=== PATIENT | female | born 1940 | race Caucasian/White ===

== ENCOUNTER → 2016-03-05 | Outpatient (CLI) | payer OTHER ==
[~2016-03-05] MED LIST: ASPI325T39 PO; CALCTAB5 PO; HYDR-5688 PO; MULT-190 PO
[2016-03-05 17:19] LABS: BLOOD UREA NITROGEN 15 mg/dl (7-18); CREATININE 0.95 mg/dl (0.60-1.20)
== END | disposition home or self-care (01) ==
LOC: C.LABBFT 12:58
PROVIDERS: ATTEND Internal Medicine
DX: Z00.00 Encounter for general adult medical examination without abnormal findings (principal); C85.90 Non-Hodgkin lymphoma, unspecified, unspecified site

== ENCOUNTER → 2016-03-11 | Outpatient (CLI) | payer OTHER ==
[~2016-03-11] MED LIST changes: +OPTIRAY 320 IV PRN
--- NOTE | 2016-03-11 12:17 | DIAGNOSTIC IMAGING REPORT ---
ABDOMEN AND PELVIS CT WITH IV AND ORAL CONTRAST CT DOSE: HISTORY: C85.90 Non-Hodgkin lymphoma TECHNIQUE: Multiaxial CT images of the abdomen and pelvis were performed following the use of intravenous and oral contrast. COMPARISON STUDY: Abdomen and pelvis CT 07/05/2015. FINDINGS: Calcified granuloma seen at the base of the left lower lobe. No pneumoperitoneum. No pneumatosis. Endplate compression deformities versus Schmorl's nodes at L2 and L5 remain stable. Small hiatus hernia. A right inguinal lymph node has increased in size. This measures 2.3 x 1.7 cm. This previous measured 2.1 x 1.4 cm. Mild left posterior bladder wall thickening remains unchanged. There is progressive soft tissue thickening at the left obturator internus muscle, ileocecal valve, and retrocrural/paraspinal location from the visualized lower thoracic spine level (T9) through L1. This results in mild anterior displacement of the distal descending thoracic aorta. The soft tissue measures up to 3 cm in thickness at the level of the distal descending thoracic aorta, previously measuring up to 2 cm. There is also extension of the abnormal soft tissue thickening along the bilateral posterior pleural/extrapleural locations within the lower chest. There may be abnormal soft tissue thickening at the gastric cardia. Increase in size in the irregular mesenteric and ileocolic lymph nodes. Dominant ileocolic lymph node measures 4.1 x 2.4 cm, previously measuring 2.8 x 1.5 cm. Colonic diverticulosis. No bowel wall thickening or obstruction. The liver, gallbladder, pancreas, spleen, and adrenal glands are unremarkable. Stable cortical calcification within the left kidney. Multiple left parapelvic renal cysts. No hydronephrosis. The uterus and ovaries are unremarkable. Trace pelvic free fluid. Multiple subcentimeter retroperitoneal lymph nodes are similar to the prior study. IMPRESSION: Progression of the abnormal soft tissue seen within the paraspinal location of the lower chest/upper abdomen, ileocecal valve, left obturator internus muscle, and possibly the gastric cardia as described above. This is consistent with progression of the patient's known lymphoma. There is also progression of the mesenteric/ileocolic and inguinal lymphadenopathy. Electronically signed by: Henrik George M.D. 03/11/2016 12:15 PM Dictated Date/Time: 03/11/2016 12:01 PM
--- NOTE | 2016-03-11 12:22 | DIAGNOSTIC IMAGING REPORT ---
CT OF THE CHEST WITH IV CONTRAST CLINICAL HISTORY: C85.90 Non-Hodgkin lymphoma COMPARISON STUDY: No previous studies for comparison. TECHNIQUE: Following the IV administration of 94 mL of Optiray-320, CT of the thorax was performed from the thoracic inlet to the lung bases. Images are reviewed in the axial, sagittal, and coronal planes. IV contrast was administered without complication. CT DOSE: 993.32 mGycm FINDINGS: Thyroid: Imaged portions of the thyroid gland are normal in appearance. Thoracic aorta: The thoracic aorta is normal in course and caliber, noting standard 3-vessel arch anatomy. No aneurysm or dissection is seen. Pulmonary vasculature: The pulmonary trunk is normal in caliber. There are no central filling defects identified to suggest pulmonary embolus. Note that this examination was not protocoled for the evaluation of pulmonary emboli. HEART: The heart is normal in size and configuration, without pericardial effusion. Lungs and pleural spaces: There is no focal pulmonary consolidation. There is a 3 mm right upper lobe nodule as visualized in image #[id number]. There is right-sided pleural thickening. Mediastinum: There is posterior mediastinal adenopathy beginning at the subcarinal level, and extending into the upper abdomen. The jefferson mass partially encases the aorta. The mass measures 54 mm in transverse diameter. The mass extends into the retrocrural soft tissues. The posterior right-sided pleural thickening is at the same attenuation as the adenopathy and may represent adenopathy extension Georgette: Clear. Axilla: Clear. Upper abdomen: There is a small hiatal hernia. Skeletal structures: There are no lytic or blastic osseous lesions. IMPRESSION: 1. Retroperitoneal and retrocrural lymphadenopathy. The jefferson mass measures 5.4 cm in transverse diameter and extends from the subcarinal region into the upper abdomen 2. 3 mm right upper lobe pulmonary nodule Electronically signed by: Ace Woods M.D. 03/11/2016 12:20 PM Dictated Date/Time: 03/11/2016 12:11 PM
== END | disposition home or self-care (01) ==
LOC: C.CTS 11:21
PROVIDERS: ATTEND Internal Medicine
DX: C85.90 Non-Hodgkin lymphoma, unspecified, unspecified site (principal); R91.1 Solitary pulmonary nodule

== ENCOUNTER 2016-04-10 08:21 | Day surgery (SDC) | payer OTHER ==
--- NOTE | 2016-03-27 08:22 | PAT Medication Instructions ---
Service Date Mar 27, 2016. Current Home Medication List Aspirin (Aspirin Ec), 325 MG PO Q6H PRN for Pain Calcium (Caltrate), 600 MG PO QAM Ocuvite Preservision (Ocuvite Preservision), 1 TAB PO QAM Medication Instructions For Your Scheduled Surgery - Hold the following medications 7 days prior to surgery per surgeon's instructions: Aspirin (Aspirin Ec), 325 MG PO Q6H PRN for Pain - Hold the following medications the morning of surgery: Calcium (Caltrate), 600 MG PO QAM Ocuvite Preservision (Ocuvite Preservision), 1 TAB PO QAM Nothing to eat or drink after midnight If you have any questions please call us at [phone] or [phone] or [phone]
[2016-03-27 09:04] LABS: BASO % 0.1 %; BASO ABS # 0.01 K/uL (0-0.2); COMPLETE YES; EOS % 2.5 %; HEMATOCRIT 41.6 % (37-47); IG% 0.3 %; LYMPH % 14.4 %; LYMPH ABS # 1.06 K/uL (1.2-3.4); MEAN CELL VOLUME 91.8 fL (80-100); MEAN CORPUSCULAR HEMOGLOBIN 31.1 pg (25-34); MEAN CORPUSCULAR HGB CONC 33.9 g/dl (32-36); MEAN PLATELET VOLUME 9.3 fL (7.4-10.4); MONO % 10.5 %; NEUT % 72.2 %; PLATELET COUNT 269 K/uL (130-400); RED BLOOD COUNT 4.53 M/uL (4.2-5.4); WHITE BLOOD COUNT 7.34 K/uL (4.8-10.8)
[2016-03-27 09:24] LABS: CALCIUM 9.5 mg/dl (8.5-10.1); POTASSIUM 4.9 mmol/L (3.5-5.1)
[~2016-04-10] VITALS: Ht 165.1 cm; Wt 81.9 kg
[~2016-04-10 08:21] MED LIST changes: +ATROPINE SULFATE 0.1 MG/ML 5ML SYR IV PRN; +CEFAZOLIN 2000 MG/60 ML D5W IV SCH; +EpHEDrine SULFATE INJ 50 MG/ML AMP IV PRN; +FENTANYL CITRATE INJ 50 MCG/1 ML 2 ML VIAL IV PRN; -HYDR-5688 PO; +LACTATED RINGER'S 1000ML 1,000 ML IV SCH; +ONDANSETRON INJ 2 MG/ML 2 ML VIAL IV PRN; -OPTIRAY 320 IV PRN
[2016-04-10 08:45] VITALS: BP 146/83; PULSE 107; TEMP 36.9; O2SAT 97; Ht 165.1 cm; Wt 81.9 kg
--- NOTE | 2016-04-10 11:11 | History & Physical Bridge Note ---
H&P Re-Evaluation Bridge Note: I have examined the patient, reviewed the History & Physical and in the interval since the performance of the History & Physical I have noted the following changes of clinical significance: No changes noted
[2016-04-10] MEDS ORDERED: HYDR-5688 PO (11:17)
--- NOTE | 2016-04-10 11:21 | Discharge Instructions ---
Discharge Instructions Admission Reason for Admission: Lymph Node Enlargment, Hx Non Hodgkins Lymphoma Discharge Discharge Diagnosis / Problem: Lymph Node Enlargement, Hx Non Hodgkins Lymphoma Discharge Goals Goal(s): Decrease discomfort, Improve function Activity Recommendations Activity Limitations: as noted below Lifting Limitations: no more than 5 pounds Exercise/Sports Limitations: until after follow-up appointment May Resume Sexual Activity: after follow-up appointment Shower/Bathe: tomorrow . Instructions / Follow-Up Instructions / Follow-Up Please follow-up with Dr. Madsen in the office in 1-2 weeks. Current Hospital Diet Patient's current hospital diet: Discharge Diet Recommended Diet: Regular Diet Pending Studies Studies pending at discharge: yes List of pending studies: Pathology report Medical Emergencies . Who to Call and When: Medical Emergencies: If at any time you feel your situation is an emergency, please call 911 immediately. . Non-Emergent Contact Non-Emergency issues call your: Primary Care Provider, Surgeon Call Non-Emergent contact if: temperature is above 101, your pain is not controlled, wound has increased drainage, wound has increased redness . "Provider Documentation" section prepared by Susanna Vaz. VTE Core Measure Inpt VTE Proph given/why not?: Unfractionated heparin SQ, SCD's
[2016-04-10] MEDS ORDERED: FENTANYL CITRATE INJ 50 MCG/1 ML 2 ML VIAL ONE (11:47)
[2016-04-10] MEDS ORDERED: MIDAZOLAM HCL 1 MG/ML 2ML VIAL ONE (11:47)
--- NOTE | 2016-04-10 11:58 | DIAGNOSTIC IMAGING REPORT ---
CT GUIDED WIRE LOCALIZATION OF RIGHT INGUINAL LYMPH NODE CT DOSE: 1007.07 mGycm CLINICAL HISTORY: Right inguinal area needle placement for OR surgical case 04/10 COMPARISON STUDY: CT of the abdomen and pelvis March 11, 2016. FINDINGS: The procedure, risks and benefits were discussed with the patient and informed consent was obtained. The procedure was performed by Dr. Chavez following a timeout. Skin of the right groin was prepped and draped in sterile fashion and local anesthesia was achieved with 1% lidocaine. Unenhanced CT images through the pelvis demonstrated the 2.4 cm right inguinal lymph node. This was targeted for localization. A 10 cm Crespo 2 needle was directed into this lymph node. The wire is located within the lateral aspect of the lymph node. The needle was removed. The wire was left in place. The patient tolerated the procedure well and no immediate complications were evident. IMPRESSION: CT-guided wire localization of 2.4 cm right inguinal lymph node. Electronically signed by: Octaviano Chavez M.D. 04/10/2016 11:57 AM Dictated Date/Time: 04/10/2016 11:55 AM
[2016-04-10] MEDS ORDERED: BUPIVACAINE/EPINEPHRINE 0.5% MPF 1:200,000 30 ML VIAL ONE (12:14)
[2016-04-10] MEDS ORDERED: SUCCINYLCHOLINE 100MG/5ML SYR IV ONE (12:35)
[2016-04-10] MEDS ORDERED: ONDANSETRON INJ 2 MG/ML 2 ML VIAL ONE (12:35)
[2016-04-10] MEDS ORDERED: PROPOFOL IV EMULSION 10 MG/ML 20 ML VIAL IV ONE (12:35)
[2016-04-10] MEDS ORDERED: DEXAMETHASONE SOD INJ 4 MG/ML VIAL ONE (12:35)
[2016-04-10] MEDS ORDERED: PHENYLEPHRINE HCL INJ 10 MG/ML VIAL ONE (12:38)
[2016-04-10] MEDS ORDERED: EpHEDrine SULFATE 50MG/5ML SYR ONE (12:38)
[2016-04-10] MEDS ORDERED: SODIUM CHLORIDE 0.9% 1000ML 1,000 ML IV SCH (12:52)
--- NOTE | 2016-04-10 12:54 | [facility] Operative Report ---
Operative Report Operative Date Apr 10, 2016. Pre-Operative Diagnosis Lymph Node Enlargement Right Groin Post-Operative Diagnosis same Procedure(s) Performed right groin excisional biopsy enlarged lymph node after needle LOC Surgeon Dr. Madsen Cracking And Fanning Machine Operator Surgeon(s) KATELYN Canales Estimated Blood Loss 10 ml Findings enlarged right groin lymph node Specimens A. Right Inguinal Lymph Node (Fresh)--sent to lab at 1240 Anesthesia LMA Complication(s) None Disposition Recovery Room / PACU I attest to the content of the Intraoperative Record and any orders documented therein. Any exceptions are noted below.
[2016-04-10] MEDS ORDERED: KETOROLAC TROMETHAMINE 30 MG/ML VIAL IV. PRN (13:00)
[2016-04-10] MEDS ORDERED: ONDANSETRON INJ 2 MG/ML 2 ML VIAL IV PRN ×2 (13:00→13:15)
[2016-04-10] MEDS ORDERED: HYDROCODONE/ACETAMOPHEN 5/325MG TAB PO PRN ×2 (13:00)
[2016-04-10] MEDS ORDERED: IBUPROFEN 600 MG TAB PO PRN (13:00)
[2016-04-10] MEDS ORDERED: FENTANYL CITRATE INJ 50 MCG/1 ML 2 ML VIAL IV PRN (13:15)
[2016-04-10] MEDS ORDERED: ATROPINE SULFATE 0.1 MG/ML 5ML SYR IV PRN (13:15)
[2016-04-10] MEDS ORDERED: EpHEDrine SULFATE INJ 50 MG/ML AMP IV PRN (13:15)
--- NOTE | 2016-04-10 13:40 | Anesthesiology Progress Note ---
Anesthesia Post Op Note Date & Time Apr 10, 2016 at 13:36 Vital Signs Pain Intensity: 0 Vital Signs Past 12 Hours Date Time Temp Pulse Resp B/P Pulse Ox O2 Delivery O2 Flow Rate FiO2 04/10/16 13:20 99 12 134/75 100 Mask 10 04/10/16 13:10 104 16 137/78 100 Mask 10 04/10/16 13:00 36.2 104 15 130/73 100 Mask 10 04/10/16 08:45 36.9 107 18 146/83 97 Room Air Notes Mental Status: alert / awake / arousable, participated in evaluation Pt Amnestic to Procedure: Yes Nausea / Vomiting: adequately controlled Pain: adequately controlled Airway Patency, RR, SpO2: stable & adequate BP & HR: stable & adequate Hydration State: stable & adequate Anesthetic Complications: no major complications apparent Initial ion exchange operator had difficulty seating LMA due to edentulous patient and lax mandible. After adequate placement by anesthesiologist, patient was found to be in laryngospasm due to inability to move air with normal level of positive pressure. Succinylcholine 60mg given to break spasm was adequate to facilitate air movement through lungs and so LMA was secured and spontaneous ventilation with pressure support was maintained throughout case. At no point in the LMA placement did oxygen saturations drop below 80%.
[2016-04-10 13:45] VITALS: BP 126/68; PULSE 98; TEMP 36.3; O2SAT 95
--- NOTE | 2016-04-10 14:08 | OPERATIVE REPORT ---
DATE OF OPERATION: 04/10/2016 PREOPERATIVE DIAGNOSIS: Enlarge right groin lymph node. POSTOPERATIVE DIAGNOSIS: Same. PROCEDURE: Excision right groin lymph node after needle localization by radiology. SURGEON: Jaiden Madsen DO DIRECTOR WEB: Susanna Vaz PA-C. ESTIMATED BLOOD LOSS: Approximately 10 mL. ANESTHESIA: General laryngeal mask airway. DESCRIPTION OF PROCEDURE: The patient prior to the OR was taken to radiology where they performed an ultrasound guided needle localization of the right groin enlarge lymph node. She was then brought to the operating suite where she was put under general anesthetic with laryngeal mask airway. The right groin area including the guidewire were sterilely prepped and draped in usual fashion. We began by making a horizontal incision just medial to the insertion site of the guidewire. We carried this down through the soft tissue using electrocautery with traction countertraction. We continue to follow the guidewire deep into the right groin area. The node was encountered, was firm and palpable. We continued to use small amounts of electrocautery as well as blunt dissection where possible with a lot of traction countertraction. We were able to tediously continue to remove in this fashion. Eventually, we were able to get the entire node out in one large specimen. It was sent fresh to pathology as instructed us by the lab. There was no real pedicle and no bleeding, etc. We thoroughly irrigated the wound. There was a smaller node just deep to it and we removed it as well and sent it with the specimen. No other palpable abnormalities were identified. We thoroughly irrigated the wound and closed in multiple layers using 0 Vicryl for deep layers, 3-0 Vicryl for mid layers and 4-0 Monocryl for skin. Marcaine was injected around the area for postoperative analgesia and skin glue used as dressing. The patient was awakened, extubated, and transferred to recovery in stable condition. I attest to the content of the Intraoperative Record and any orders documented therein. Any exceptions are noted below. BEN
[2016-04-10 14:45] VITALS: BP 131/72; PULSE 98; TEMP 36.3; O2SAT 95
[2016-06-09] MEDS ORDERED: HYDR-5688 PO (09:02)
== END 2016-04-10 15:10 | disposition home or self-care (01) ==
LOC: C.ACU 08:21
PROVIDERS: ATTEND Surgery
DX: C82.35 Follicular lymphoma grade IIIa, lymph nodes of inguinal region and lower limb (principal); C85.90 Non-Hodgkin lymphoma, unspecified, unspecified site; M51.36 Other intervertebral disc degeneration, lumbar region; E78.5 Hyperlipidemia, unspecified; Z98.890 Other specified postprocedural states

== ENCOUNTER → 2016-05-07 | Outpatient (CLI) | payer OTHER ==
[~2016-05-07] MED LIST changes: -ATROPINE SULFATE 0.1 MG/ML 5ML SYR IV PRN; -CEFAZOLIN 2000 MG/60 ML D5W IV SCH; -EpHEDrine SULFATE INJ 50 MG/ML AMP IV PRN; -FENTANYL CITRATE INJ 50 MCG/1 ML 2 ML VIAL IV PRN; +HYDR-5688 PO; -LACTATED RINGER'S 1000ML 1,000 ML IV SCH; -ONDANSETRON INJ 2 MG/ML 2 ML VIAL IV PRN
--- NOTE | 2016-05-07 12:29 | DIAGNOSTIC IMAGING REPORT ---
PET/CT HISTORY: LYMPHOMA TECHNIQUE: PET/CT was performed from the base of the skull through the pelvis following the intravenous administration of 15.66 mCi of F18-FDG. Non-contrast CT imaging was performed over the same range without breath-hold for attenuation correction of PET images and anatomic correlation, but not for primary interpretation as it is not of standard diagnostic quality. CT DOSE: COMPARISON: Chest abdomen and pelvis CT 03/11/2016. FINDINGS: HEAD AND NECK: There is a 9 mm FDG avid left preauricular lymph node. Intense FDG uptake associated with the masslike enlargement of the left palatine tonsil which measures up to 2.3 cm. There is a smaller focus of intense FDG uptake involving the right palatine tonsil which measures 1 cm. FDG avid soft tissue mass superficial to the left sternocleidomastoid muscle which measures 1.4 cm. CHEST: FDG avid left paraspinal mass originating at the T7 level and extending inferiorly to the retrocrural location at approximately the L1 level. This also extends into the right paraspinal location at the T11-T12 level. This partially encases the descending thoracic aorta and upper abdominal aorta. This measures a maximal thickness of 3.1 cm. On image 84 there is a 1 cm FDG avid right retrocrural nodule which could represent a bronchial lymph node or pulmonary nodule. There is a single subcentimeter left axillary FDG avid lymph node. The stomach is mild FDG uptake. There are few subcentimeter FDG avid right internal mammary lymph nodes. ABDOMEN/PELVIS: There are few FDG avid retroperitoneal and central mesenteric lymph nodes. Dominant central mesenteric lymph node measures 1.8 cm on image 161. Intensely FDG avid ileocolic mass/lymph node which measures 4.4 x 2.5 cm. There is also an FDG avid mass at the ileocecal valve which measures approximately 4 cm. Mild FDG uptake associated with a few inguinal lymph nodes. There are few FDG avid bilateral iliac lymph nodes. There is a 12 mm FDG avid focus within the anterior segment of the right hepatic lobe on image 117. However, there is no corresponding abnormality on the noncontrast CT images. Large left pelvic sidewall mass extending into the obturator internus and groin muscles is again noted. This demonstrates intense FDG uptake. MUSCULOSKELETAL: Multiple scattered intense FDG avid foci seen throughout the majority of the visualized osseous structures. This is most pronounced within the spine, sacrum, and proximal left femur. This corresponds to subtle areas of sclerosis consistent with metastatic disease. IMPRESSION: Extensive FDG avid disease identified within the neck, chest, abdomen, pelvis, and visualized osseous structures as described above. Electronically signed by: Henrik George M.D. 05/07/2016 12:28 PM Dictated Date/Time: 05/07/2016 12:01 PM
== END | disposition home or self-care (01) ==
LOC: C.PET 09:42
PROVIDERS: ATTEND Internal Medicine Hematology & Oncology
DX: C82.25 Follicular lymphoma grade III, unspecified, lymph nodes of inguinal region and lower limb (principal)

== ENCOUNTER → 2016-06-03 | Outpatient (CLI) | payer OTHER ==
--- NOTE | 2016-06-03 16:31 | ECHOCARDIOGRAM REPORT ---
*NOTICE TO RECEIVING REPUBLICAN AGENCY This information is strictly Confidential and protected under [place] law. [place] law prohibits you from making any further disclosure of this information unless further disclosure is expressly permitted by the written consent of the person to whom it pertains or is authorized by law. A general authorization for the release of medical or other information is not sufficient for this purpose. Hospital accepts no responsibility if the information is made available to any other person, INCLUDING THE PATIENT. Interpretation Summary * Name: FESTUS AGUILERA Study Date: 06/03/2016 01:50 PM BP: 140/59 mmHg * Patient Location: [facility] HR: 93 * : 1940 (M/d/yyyy) Gender: Female Height: 5 in * Age: 76 yrs Ethnicity: CA Weight: 179 lb * Ordering Physician: Sarthak Momin * Referring Physician: Sarthak Momin D.O. * Performed By: Amber Allen RDCS * * Reason For Study: Follicular non-Hodgkin's lymphoma * BSA: 0.29 m2 * -- Conclusions -- * Left ventricular systolic function is normal. * Grade I diastolic dysfunction, (abnormal relaxation pattern). * Right ventricular systolic pressure is normal. Procedure Details * A complete two-dimensional transthoracic echocardiogram was performed (2D, M-mode, Doppler and color flow Doppler). Left Ventricle * The left ventricle is normal in size. * There is normal left ventricular wall thickness. * Ejection Fraction = 60-65%. * Left ventricular systolic function is normal. * Grade I diastolic dysfunction, (abnormal relaxation pattern). Right Ventricle * The right ventricle is normal in size and function. Atria * The left atrial size is normal. * Right atrial size is normal. Mitral Valve * The mitral valve anatomy is normal. * There is no mitral regurgitation noted. Tricuspid Valve * The tricuspid valve is not well visualized, but is grossly normal. * There is mild tricuspid regurgitation. * Right ventricular systolic pressure is normal. Aortic Valve * The aortic valve is normal in structure and function. * No hemodynamically significant valvular aortic stenosis. * There is no significant aortic regurgitation. Great Vessels * The aortic root and proximal ascending aorta are normal sized. Pericardium/Pleural * There is no pericardial effusion. MMode 2D Measurements and Calculations IVSd 0.93 cm LVIDd 3.8 cm LVIDs 2.6 cm LVPWd 0.96 cm IVS/LVPW 0.96 FS 33.3 % EDV(Teich) 63.1 ml ESV(Teich) 23.6 ml EF(Teich) 62.6 % EDV(cubed) 56.1 ml ESV(cubed) 16.7 ml EF(cubed) 70.3 % LV mass(C)d 109.4 grams LV mass(C)dI 372.4 grams/m\S\2 SV(Teich) 39.5 ml SI(Teich) 134.4 ml/m\S\2 SV(cubed) 39.4 ml SI(cubed) 134.2 ml/m\S\2 Ao root diam 2.6 cm Ao root area 5.2 cm\S\2 ACS 1.5 cm LA dimension 2.7 cm asc Aorta Diam 2.2 cm LA/Ao 1.1 LVAd ap4 20.6 cm\S\2 LVLd ap4 6.6 cm EDV(MOD-sp4) 51.5 ml EDV(sp4-el) 54.6 ml LVAs ap4 11.2 cm\S\2 LVLs ap4 5.5 cm ESV(MOD-sp4) 19.3 ml ESV(sp4-el) 19.1 ml EF(MOD-sp4) 62.5 % EF(sp4-el) 65.0 % LVAd ap2 18.7 cm\S\2 LVLd ap2 6.4 cm EDV(MOD-sp2) 44.4 ml EDV(sp2-el) 46.2 ml LVAs ap2 10.4 cm\S\2 LVLs ap2 5.2 cm ESV(MOD-sp2) 17.1 ml ESV(sp2-el) 17.6 ml EF(MOD-sp2) 61.6 % EF(sp2-el) 61.9 % LVLd %diff -2.47 % EDV(MOD-bp) 49.4 ml LVLs %diff -5.68 % ESV(MOD-bp) 18.6 ml EF(MOD-bp) 62.3 % SV(MOD-sp4) 32.1 ml SI(MOD-sp4) 109.4 ml/m\S\2 SV(MOD-sp2) 27.3 ml SI(MOD-sp2) 93.0 ml/m\S\2 SV(MOD-bp) 30.8 ml SI(MOD-bp) 104.8 ml/m\S\2 SV(sp4-el) 35.5 ml SI(sp4-el) 120.8 ml/m\S\2 SV(sp2-el) 28.6 ml SI(sp2-el) 97.3 ml/m\S\2 Doppler Measurements and Calculations MV E max justine 83.0 cm/sec MV A max justine 113.8 cm/sec MV E/A 0.73 MV dec time 0.31 sec Ao V2 max 112.4 cm/sec Ao max PG 5.0 mmHg Ao max PG (full) 0.53 mmHg LV V1 max PG 4.5 mmHg LV V1 max 106.3 cm/sec PA V2 max 103.6 cm/sec PA max PG 4.3 mmHg PA acc slope 374.1 cm/sec\S\2 PA acc time 0.15 sec TR max justine 221.4 cm/sec PA pr(Accel) 10.3 mmHg
== END | disposition home or self-care (01) ==
LOC: C.CPL 13:35
PROVIDERS: ATTEND Internal Medicine Hematology & Oncology
DX: Z01.810 Encounter for preprocedural cardiovascular examination (principal); C82.25 Follicular lymphoma grade III, unspecified, lymph nodes of inguinal region and lower limb; I51.89 Other ill-defined heart diseases

== ENCOUNTER → 2016-06-09 | Day surgery (SDC) | payer OTHER ==
[2016-06-05 09:38] VITALS: BMI 35.0
[~2016-06-09] VITALS: Ht 152.4 cm; Wt 81.5 kg
[~2016-06-09] MED LIST changes: +ATROPINE SULFATE 0.1 MG/ML 5ML SYR IV PRN; +BUPIVACAINE/EPINEPHRINE 0.5% MPF 1:200,000 30 ML VIAL ONE; +CEFAZOLIN 2000 MG/60 ML D5W IV SCH; +EpHEDrine SULFATE INJ 50 MG/ML AMP IV PRN; +FENTANYL CITRATE INJ 50 MCG/1 ML 2 ML VIAL IV PRN; +FENTANYL CITRATE INJ 50 MCG/1 ML 2 ML VIAL ONE; +HEPARIN SOD (PORCINE) 1000 UNIT/ML 10 ML VIAL ONE; +HEPARIN SOD 5000 UNIT/0.5 ML CARP SQ SCH; +LACTATED RINGER'S 1000ML 1,000 ML IV SCH; +LIDOCAINE HCL 2% 2 ML VIAL (20MG/ML) ONE; +MIDAZOLAM HCL 1 MG/ML 2ML VIAL ONE; +MoRPHine SULFATE 2 MG/ML CARP IV PRN; +ONDANSETRON INJ 2 MG/ML 2 ML VIAL IV PRN; +PROPOFOL IV EMULSION 10 MG/ML 20 ML VIAL IV ONE
[2016-06-09 07:07] VITALS: BP 151/74; PULSE 98; TEMP 37.2; O2SAT 95; Ht 152.4 cm; Wt 81.5 kg
--- NOTE | 2016-06-09 09:03 | Discharge Instructions ---
Discharge Instructions Date of Service Jun 09, 2016. Visit Reason for Visit: Non-Hodgkins Lymphoma Discharge Discharge Diagnosis / Problem: A-port Discharge Goals Goal(s): Improve disease control Activity Recommendations Activity Limitations: as noted below Shower/Bathe: no limitations Driving or Machine Use: resume 1 day after discharge (if not taking [place]) Anesthesia . Post Anesthesia Instructions: If you have had General Anesthesia or IV Sedation: * Do not drive today. * Resume driving when surgeon permits. * Do not make important decisions or sign legal documents today. * Call surgeon for: 1. Temperature elevations greater than 101 degrees F. 2. Uncontrollable pain. 3. Excessive bleeding. 4. Persistent nausea and vomiting. 5. Medication intolerance (nausea, vomiting or rash). * For nausea and vomiting use only clear liquids such as: tea, soda, bouillon until nausea subsides, then gradually increase diet as tolerated. * If you have any concerns or questions, call your surgeon's office. If physician is unavailable and it is an emergency, call 911 or go to the nearest emergency room. . Diet Recommendations Recommended Home Diet: no limitations Pending Studies Studies pending at discharge: no Medical Emergencies . Who to Call and When: Medical Emergencies: If at any time you feel your situation is an emergency, please call 911 immediately. . Non-Emergent Contact Non-Emergency issues call your: Surgeon Call Non-Emergent contact if: you have a fever, temperature is above 101.5, wound has increased redness . . "Provider Documentation" section prepared by Mayur Cotton.
--- NOTE | 2016-06-09 09:42 | [facility] Operative Report ---
Operative Report Operative Date Jun 09, 2016. Pre-Operative Diagnosis Non-Hodgkin Lymphoma Post-Operative Diagnosis same Procedure(s) Performed left subclavian mediport insertion under fluoro Surgeon Dr. Jaiden Madsen Welding Machine Operator Electro Gas Surgeon(s) Susanna Vaz PA-C Estimated Blood Loss 5ml Findings normal anatomy Specimens none Anesthesia MAC Complication(s) None Disposition Recovery Room / PACU I attest to the content of the Intraoperative Record and any orders documented therein. Any exceptions are noted below.
--- NOTE | 2016-06-09 10:05 | DIAGNOSTIC IMAGING REPORT ---
CHEST ONE VIEW PORTABLE HISTORY: port placement COMPARISON: Head CT 05/07/2016. FINDINGS: The heart is mildly enlarged. Left subclavian Port-A-Cath terminates in the expected location of the distal SVC. No pneumothorax. No pleural effusions. Diffuse interstitial vascular thickening. This suggests mild pulmonary edema. Patchy densities at the base of the left lower lobe. IMPRESSION: 1. The left subclavian Port-A-Cath terminates in the SVC. No pneumothorax. 2. Diffuse interstitial and vascular thickening consistent with mild pulmonary edema. 3. Patchy density at the left lung base may represent atelectasis or pneumonia. Electronically signed by: Henrik George M.D. 06/09/2016 10:03 AM Dictated Date/Time: 06/09/2016 10:01 AM
--- NOTE | 2016-06-09 10:17 | Anesthesiology Progress Note ---
Anesthesia Post Op Note Date & Time Jun 09, 2016 at 10:16 Vital Signs Pain Intensity: 0 Vital Signs Past 12 Hours Date Time Temp Pulse Resp B/P Pulse Ox O2 Delivery O2 Flow Rate FiO2 06/09/16 10:13 36.5 88 18 125/72 94 Nasal Cannula 2 06/09/16 09:55 87 18 131/78 99 Nasal Cannula 2 06/09/16 09:49 36.1 89 18 126/68 99 Mask 10 06/09/16 07:07 37.2 98 16 151/74 95 Room Air Notes Mental Status: alert / awake / arousable, participated in evaluation Pt Amnestic to Procedure: Yes Nausea / Vomiting: adequately controlled Pain: adequately controlled Airway Patency, RR, SpO2: stable & adequate BP & HR: stable & adequate Hydration State: stable & adequate Anesthetic Complications: no major complications apparent
[2016-06-09 10:25] VITALS: BP 147/74; PULSE 92; TEMP 36.7; O2SAT 95
[2016-06-09 10:55] VITALS: BP 155/72; PULSE 89; TEMP 36.7; O2SAT 96
--- NOTE | 2016-06-09 11:15 | OPERATIVE REPORT ---
DATE OF OPERATION: 06/09/2016 PREOPERATIVE DIAGNOSIS: Lymphoma with need for chemotherapy. POSTOPERATIVE DIAGNOSIS: Same. PROCEDURE: Left subclavian MediPort insertion under fluoroscopy. SURGEON: Dr. Jaiden Madsen. TEAM FACILITATOR: Susanna Vaz PA-C ESTIMATED BLOOD LOSS: Approximately 5 mL. COMPLICATIONS: No immediate. ANESTHESIA: MAC with local. DESCRIPTION OF PROCEDURE: After informed consent was obtained, the patient was taken the operating suite and placed in the supine position. Rolled towel was placed between her shoulder blades. The left arm was tucked. IV sedation was administered by anesthesia and titrated to effect. The left upper chest wall was sterilely prepped and draped in the usual fashion. Local was infiltrated around the area of incision as well as up to the periosteum of the left clavicle. An incision was made and carried down through the soft tissue using electrocautery. Blunt finger dissection was used to create a pocket that housed the port itself. We then accessed the left subclavian vein with an 18-gauge needle with a single stick. We advanced the guidewire. Initially under fluoroscopy, the wire wanted to go up into the jugular vein. I was able to withdraw it and gently inserted it again under fluoroscopy and I was able to access the superior vena cava. Once this was done, we then withdrew the needle itself and advanced a vascular dilator with a peelaway sheath over the guidewire again under fluoroscopic guidance. A MediPort was connected to the catheter and flushed with heparin solution, cut to appropriate length by sizing it again under fluoroscopy. We then placed the port into the housing pocket. We withdrew the guidewire as well as a vascular dilator and advanced the catheter through the peelaway sheath. The peelaway sheath was then peeled away leaving the catheter in place. Fluoroscopy verified the positioning in the superior vena cava. We then secured the port itself to the pectoralis muscle using 0 Ethibond and using 3-point fixation. We did access the port and flushed it with heparin solution, withdrew dark venous blood and then reflushed it at a final time. The wound was then irrigated and closed with 3-0 Monocryl for deep layers and 3-0 Monocryl for the skin. Sterile dressing was applied. The patient was awakened and transferred to recovery in stable condition. Postoperative portable chest x-ray is currently pending to verify the catheter position and to rule out pneumothorax. I attest to the content of the Intraoperative Record and any orders documented therein. Any exceptio ns are noted below.
== END | disposition home or self-care (01) ==
LOC: C.ACU 06:36
PROVIDERS: ATTEND Surgery
DX: C85.90 Non-Hodgkin lymphoma, unspecified, unspecified site (principal); E78.5 Hyperlipidemia, unspecified; E66.9 Obesity, unspecified; Z68.35 Body mass index [BMI] 35.0-35.9, adult; Z98.41 Cataract extraction status, right eye; Z98.42 Cataract extraction status, left eye; Z98.890 Other specified postprocedural states; Z81.8 Family history of other mental and behavioral disorders; Z83.511 Family history of glaucoma

== ENCOUNTER → 2016-10-22 | Outpatient (CLI) | payer OTHER ==
[~2016-10-22] MED LIST changes: -ATROPINE SULFATE 0.1 MG/ML 5ML SYR IV PRN; -BUPIVACAINE/EPINEPHRINE 0.5% MPF 1:200,000 30 ML VIAL ONE; -CEFAZOLIN 2000 MG/60 ML D5W IV SCH; -EpHEDrine SULFATE INJ 50 MG/ML AMP IV PRN; -FENTANYL CITRATE INJ 50 MCG/1 ML 2 ML VIAL IV PRN; -FENTANYL CITRATE INJ 50 MCG/1 ML 2 ML VIAL ONE; -HEPARIN SOD (PORCINE) 1000 UNIT/ML 10 ML VIAL ONE; -HEPARIN SOD 5000 UNIT/0.5 ML CARP SQ SCH; -LACTATED RINGER'S 1000ML 1,000 ML IV SCH; -LIDOCAINE HCL 2% 2 ML VIAL (20MG/ML) ONE; -MIDAZOLAM HCL 1 MG/ML 2ML VIAL ONE; -MoRPHine SULFATE 2 MG/ML CARP IV PRN; -ONDANSETRON INJ 2 MG/ML 2 ML VIAL IV PRN; -PROPOFOL IV EMULSION 10 MG/ML 20 ML VIAL IV ONE
--- NOTE | 2016-10-22 12:12 | DIAGNOSTIC IMAGING REPORT ---
PET/CT CLINICAL HISTORY: Lymphoma. TECHNIQUE: A PET/CT was performed from the skull base through the upper thighs following intravenous injection of 15.90 mCi of F 18 FDG IV. The injection was performed at 10:13 AM on October 22, 2016 and imaging began at 10:58 AM on October 22, 2016. Unenhanced CT was performed for attenuation correction purposes and anatomic localization. COMPARISON STUDY: PET/CT May 07, 2016. FINDINGS: Head and neck: The FDG avid left palatine tonsil mass has markedly decreased in size and FDG uptake since exam of May 07, 2016. Minimal residual FDG uptake is is noted within SUV max of 3. It previously measured 8.3. Uptake within the right palatine tonsil has resolved. The previously described left preauricular nodule and the FDG avid lesion anterior to the left sternocleidomastoid muscle has resolved. No enlarged cervical lymph nodes are present on this exam Chest: The previously described FDG avid paraspinal/retrocrural mass has markedly decreased in size and FDG avidity since exam of May 07, 2016. There is mild residual ill-defined soft tissue by CT. Minimal residual FDG uptake is noted within SUV max of 3.2. It previously measured 7. No axillary lymphadenopathy is present on this examination. Heart is mildly enlarged. There is no pericardial effusion. Small hiatal hernia is present. 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 Residual lesion now measures 2.2 x 1.1 cm. It previously measured 4.4 x 2.5 cm. There is no significant FDG uptake within the residual ill-defined soft tissue. Uptake at the level of the ileocecal valve has nearly completely resolved. There is mild residual FDG uptake with an SUV max of 3.3. It previously measured 8.5. The large left pelvic sidewall FDG avid mass has markedly decreased in size with only residual slight asymmetry by CT. There is minimal residual FDG uptake within SUV max of 2.8. There is sigmoid diverticulosis without evidence for acute diverticulitis. Musculoskeletal: Uptake within innumerable skeletal lesions has nearly completely resolved since exam May 07, 2016. At most, there is mild multifocal uptake within this lesions within SUV max for approximately 1.9. IMPRESSION: Findings consistent with a significant treatment response. Near complete resolution of FDG uptake since prior PET/CT of May 07, 2016. Mild residual FDG uptake at multiple sites, as described above with minimal residual ill-defined soft tissue by CT. Electronically signed by: Octaviano Chavez M.D. 10/22/2016 12:11 PM Dictated Date/Time: 10/22/2016 11:52 AM
== END | disposition home or self-care (01) ==
LOC: C.PET 09:47
PROVIDERS: ATTEND Internal Medicine Hematology & Oncology
DX: C82.25 Follicular lymphoma grade III, unspecified, lymph nodes of inguinal region and lower limb (principal)

== ENCOUNTER → 2017-03-20 | Outpatient (CLI) | payer OTHER ==
[~2017-03-20] MED LIST changes: -HYDR-5688 PO
[2017-03-20 12:35] LABS: BASO % 0.4 %; BASO ABS # 0.02 K/uL (0-0.2); EOS % 2.6 %; EOS ABS # 0.13 K/uL (0-0.5); HEMATOCRIT 37.7 % (37-47); HEMOGLOBIN 12.8 g/dL (12.0-16.0); IG# 0.01 K/uL (0.00-0.02); LYMPH % 14.1 %; LYMPH ABS # 0.72 K/uL (1.2-3.4); MEAN CELL VOLUME 94.3 fL (80-100); MEAN PLATELET VOLUME 9.7 fL (7.4-10.4); MONO % 11.2 %; MONO ABS # 0.57 K/uL (0.11-0.59); NEUT % 71.5 %; NEUT ABS # 3.64 K/uL (1.4-6.5); PLATELET COUNT 223 K/uL (130-400); RED CELL DISTRIBUTION WIDTH CV 14.5 % (11.5-14.5); RED CELL DISTRIBUTION WIDTH SD 49.8 fL (36.4-46.3); WHITE BLOOD COUNT 5.09 K/uL (4.8-10.8)
[2017-03-20 12:48] LABS: ALBUMIN 3.5 gm/dl (3.4-5.0); ALT/SGPT 25 U/L (12-78); BLOOD UREA NITROGEN 21 mg/dl (7-18); CALCIUM 9.9 mg/dl (8.5-10.1); CARBON DIOXIDE 28 mmol/L (21-32); CHOLESTEROL 219 mg/dl (0-200); CREATININE 0.89 mg/dl (0.60-1.20); GLUCOSE 107 mg/dl (70-99); POTASSIUM 4.2 mmol/L (3.5-5.1); SODIUM 138 mmol/L (136-145)
[2017-03-20 12:58] LABS: ALKALINE PHOSPHATASE 112 U/L (45-117); AST/SGOT 25 U/L (15-37); LDL CHOLESTEROL CALCULATED 137 mg/dl; TOTAL PROTEIN 7.2 gm/dl (6.4-8.2)
== END | disposition home or self-care (01) ==
LOC: C.LABBFT 08:27
PROVIDERS: ATTEND Internal Medicine
DX: E78.5 Hyperlipidemia, unspecified (principal); R73.01 Impaired fasting glucose; C85.90 Non-Hodgkin lymphoma, unspecified, unspecified site

== ENCOUNTER → 2017-04-30 | Outpatient (CLI) | payer OTHER ==
--- NOTE | 2017-04-30 15:06 | MAMMOGRAPHY REPORT ---
BILATERAL DIGITAL SCREENING MAMMOGRAM TOMOSYNTHESIS WITH CAD: 04/30/2017 CLINICAL HISTORY: Routine screening. The patient has no current complaints. TECHNIQUE: Breast tomosynthesis in addition to standard 2D mammography was performed. Current study was also evaluated with a Computer Aided Detection (CAD) system. COMPARISON: Comparison is made to exams dated: 02/13/2016 mammogram, 02/13/2016 ultrasound biopsy, 1 04/08/2015 ultrasound, 02/06/2016 mammogram, 01/25/2016 mammogram, and 12/25/2014 mammogram - [facility]. BREAST COMPOSITION: There are scattered areas of fibroglandular density in both breasts. FINDINGS: No suspicious masses, calcifications, or areas of architectural distortion are noted in ei ther breast. There has been no significant interval change compared to prior exams. A biopsy clip is again noted within the right medial breast from prior biopsy of an asymmetry which yielded lymphoma. The previously seen right breast asymmetries are less prominent compared to the 2016 exam. Scatter ed bilateral benign-appearing calcifications are again noted. IMPRESSION: ACR BI-RADS CATEGORY 2: BENIGN There is no mammographic evidence of malignancy. A 1 year screening mammogram is recommended. The pa tient will receive written notification of the results. Approximately 10% of breast cancers are not detected with mammography. A negative mammographic report should not delay biopsy if a clinically suggestive mass is present. Laurie Duque M.D. /:04/30/2017 14:28:01 Transmission Systems Operator: Clare REYES)(Yong), [facility] letter sent: Normal 1/2 BI-RADS Code: ACR BI-RADS Category 2: Benign
== END | disposition home or self-care (01) ==
LOC: C.MAMM 14:00
PROVIDERS: ATTEND Internal Medicine
DX: Z12.31 Encounter for screening mammogram for malignant neoplasm of breast (principal)